=== PATIENT | female | born 1990 | race Asian ===

== ENCOUNTER 2016-12-25 13:12 | Outpatient (CLI) | payer MEDICAID ==
[~2016-12-25] VITALS: Ht 160 cm; Wt 77.0 kg
[2016-12-25 13:42] VITALS: BP 106/64
[2016-12-25 15:21] LABS: BASO % 0.3 % (0.0-1.0); EOS # 0.1 K/mm3 (0.0-0.50); EOS % 0.8 % (0.0-3.0); LARGE UNSTAINED CELL # 0.2 K/mm3 (0.0-0.4); LARGE UNSTAINED CELL % 1.9 % (0.0-4.0); LYMPH # 2.1 K/mm3 (1.5-6.5); LYMPH % 21.2 % (24.0-44.0); MEAN CORPUSCULAR HEMOGLOBIN 28.1 pg (27.0-33.0); MEAN CORPUSCULAR VOLUME 85.1 fl (80.0-96.0); MONO # 0.4 K/mm3 (0.0-0.8); MONO % 4.3 % (0.0-5.0); NEUTROPHILS # 7.1 K/mm3 (1.8-7.7); NEUTROPHILS % 71.5 % (36.0-66.0); PLATELET COUNT, AUTOMATED 222 k/mm3 (150-450); RED CELL DISTRIBUTION WIDTH 13.2 % (11.5-14.5)
[2016-12-25 15:51] LABS: CONTROL LINE INT CTR LINE PRESENT; HIV SCRN NEGATIVE (NEGATIVE); HIV SCRN1 NEGATIVE (NEGATIVE)
[2016-12-25 16:02] LABS: HBsAg Prenatal NEGATIVE (NEGATIVE)
== END 2016-12-25 16:20 | disposition home or self-care (01) ==
LOC: M LDO 13:12
PROVIDERS: ATTEND Obstetrics & Gynecology
DX: O26.892 Other specified pregnancy related conditions, second trimester (principal); R10.2 Pelvic and perineal pain; Z3A.22 22 weeks gestation of pregnancy

== ENCOUNTER → 2017-01-18 | Outpatient (CLI) | payer MEDICAID, OTHER ==
--- NOTE | 2017-01-19 04:44 | REP ---
Clinical: Anatomical evaluation. Comparison: None . Findings: Examination demonstrates a single live intrauterine in cephalic presentation. motion is identified by technologist. Placenta is noted posteriorly and grade zero without evidence for placenta previa or abruption. Amniotic fluid volume is normal. Cervix measures O 3.3 cm in length and appears closed. No evidence for nuchal cord. Gestational age by LMP 26 weeks 1 day with ARYAN 04/25/2017 . Gestational age by current measurements 25 weeks 4 days with ARYAN 04/29/2017 . FHR equals 147 beats per minute. BPD 6.4 cm 25 weeks 6 days HC 23.3 cm 25 weeks 2 days AC 21.2 cm 25 weeks 5 days FL 4.5 cm 24 weeks 6 days HL 4.4 cm 26 weeks 1 day HC/AC ratio 1.10 Estimated weight 800 grams ( 24th percentile). Anatomical assessment demonstrates normal structures including cranium, choroid plexus, cavum, cerebellum/posterior fossa, lungs, diaphragm, stomach, cord insertion/three-vessel cord, kidneys/bladder, spine, and extremities. Impression: 1. Single live intrauterine in cephalic presentation. 2. Limited evaluation of the facial features and heart/ventricular outflow tracts. 3. Remainder of the anatomical assessment is complete and normal. Signed by Zeke King MD 01/19/2017 04:36 A
== END ==
LOC: M RAD 13:33
PROVIDERS: ATTEND Advanced Practice Midwife
DX: Z34.82 Encounter for supervision of other normal pregnancy, second trimester (principal)

== ENCOUNTER → 2017-03-05 | Outpatient (CLI) | payer OTHER ==
--- NOTE | 2017-03-05 16:44 | REP ---
OB ULTRASOUND: HISTORY: growth and amniotic fluid volume calculation. COMPARISON: 01/18/2017 Multiple ultrasonographic images of the gravid uterus show a single living intrauterine gestation in the cephalic presentation. Doppler interrogation of the heart shows a heart rate of 144 beats per minute. The placenta is posterior and not low lying. The subjective amniotic fluid volume is within normal limits. The calculated amniotic fluid index is 9.3 with an expected range of 8.4 to 24.4. Doppler interrogation of the umbilical artery shows an AB ratio of 3.46, slightly elevated with the upper limits of normal being 3.15 for this age group. Once again, the facial features were seen suboptimally as was the right ventricular outflow tract. The left ventricular outflow tract was seen to be within normal limits on today's examination, previously unidentified. BPD 8.2 cm = 33 weeks 0 days HC 28.6 cm = 31 weeks 3 days AC 26.6 cm = 30 weeks 5 days FL 5.9 cm = 30 weeks 6 days The estimated weight is 1687 grams, which is at the 13th percentile for a 32 week 5 day gestational age. IMPRESSION: Single living intrauterine gestation as described above with an estimated gestational age of 31 weeks 0 days via composite criteria with an estimated date of delivery of 05/07/2017 by today's exam. No anomalies were detected, however, the anatomical screen remains incomplete as described above. Signed by Jhonny Alfred DO 03/05/2017 04:49 P
== END ==
LOC: M SMT 14:40
PROVIDERS: ATTEND Advanced Practice Midwife
DX: O26.843 Uterine size-date discrepancy, third trimester (principal); Z3A.31 31 weeks gestation of pregnancy

== ENCOUNTER → 2017-03-26 | Outpatient (REF) | payer OTHER | LOC: M LAB REF 13:13 | PROVIDERS: ATTEND Advanced Practice Midwife | DX: Z34.83 Encounter for supervision of other normal pregnancy, third trimester (principal) ==

== ENCOUNTER 2017-04-09 06:21 | Inpatient (IN) | payer OTHER ==
[~2017-04-09] VITALS: Ht 157.5 cm; Wt 86.0 kg
[2017-04-09] VITALS (18 sets, daily range): BP systolic 91–133; BP diastolic 52–83
[2017-04-09] MEDS ORDERED: PRENTAB9 PO (06:28)
[2017-04-09 08:18] LABS: MEAN CORPUSCULAR HEMOGLOBIN 28.6 pg (27.0-33.0); MEAN CORPUSCULAR HGB CONC 33.6 g/dl (32.0-36.5); RED CELL DISTRIBUTION WIDTH 15.4 % (11.5-14.5); WHITE BLOOD COUNT 13.5 K/mm3 (4.0-10.0)
[2017-04-09 08:25] LABS: ALT/SGPT 17 U/L (12-78); AST/SGOT 23 U/L (15-37); BILIRUBIN,TOTAL 0.3 MG/DL (0.2-1.0); GLOMERULAR FILTRATION RATE > 60.0 (>60); URIC ACID 6.6 MG/DL (2.6-6.0)
--- NOTE | 2017-04-09 09:26 | HPE ---
DATE OF ADMISSION: 04/09/2017 27-year-old, (G) 1, para (P) 0 female at 37 and 5/7 weeks gestation by last menstrual period (LMP) consistent with 25 week ultrasound and expected date of confinement (EDC) 04/25/2017 who presents with regular contractions every 3-4 minutes for the last several hours that increased in intensity. She denies vaginal bleeding. COURSE: The patient initiated care at 25 weeks gestation. She had early care in [place] and then moved [place] this [place]. Her course was unremarkable. MEDICAL HISTORY: None. SURGERIES: None. ALLERGIES: None. SOCIAL HISTORY: The patient is . She denies cigarettes, alcohol or drug use. FAMILY HISTORY: Noncontributory. PHYSICAL EXAMINATION: Blood pressure 124/78. Pulse 95. She appears uncomfortable. Head and Neck Exam: Normal. Lungs: Clear. Heart: Regular rate and rhythm. Abdomen: Nontender. Gravid. heart tones Category 1. Sterile Vaginal Exam: 4 cm, 100% effaced, -1 station, vertex. Extremities: Nontender. O positive. Rubella immune. RPR nonreactive. Hepatitis B and C negative. HIV negative. Diabetes screen 118. GBS negative on 03/26/2017. ASSESSMENT: 27-year-old, G1 at 37 and 5/7 weeks gestation who presents in active labor. The patient is admitted on 04/09/2017.
[2017-04-09] MEDS ORDERED: BUTORPHANOL 2 MG/ML INJ (J0595) IV ONE (15:45)
[2017-04-09] MEDS ORDERED: PROMETHAZINE INJ 25 MG/ML VIAL (J2550) IV ONE (15:45)
[2017-04-09] MEDS ORDERED: OXYTOCIN 30 UNITS IN 0.9% NaCl 500ML IV BAG (J2590) As Ordered ONE (18:51)
[2017-04-09] MEDS ORDERED: RHOGAM 300 MCG (1500 IU) INJ (J2790) IM SCH (20:00)
[2017-04-09] MEDS ORDERED: LR 1,000 ML IV SCH (20:00)
[2017-04-09] MEDS ORDERED: OXYTOCIN DRIP 30 UNITS in APPROPRIATE DILUENT 1 EA IV SCH (20:00)
[2017-04-09] MEDS ORDERED: PROMETHAZINE 25 MG TAB PO PRN (20:00)
[2017-04-09] MEDS ORDERED: IBUPROFEN 800 MG TAB PO PRN (20:00)
[2017-04-09] MEDS ORDERED: ACETAMINOPHEN 500 MG TAB PO PRN (20:00)
[2017-04-09] MEDS ORDERED: ONDANSETRON 4MG/2ML VIAL (J2405) IV PRN (20:00)
[2017-04-09] MEDS ORDERED: DOCUSATE SODIUM 100 MG CAP PO PRN (20:00)
[2017-04-09] MEDS ORDERED: DIBUCAINE 1% OINTMENT 30GM TOP PRN (20:00)
[2017-04-10 05:39] VITALS: BP 104/56
[2017-04-10] MEDS: PRENATAL VITAMIN TAB PO SCH ×2 (09:00→09:03)
[2017-04-10] MEDS ORDERED: LIDOCAINE 1% MDV INJ 50 ML VIAL SC ONE (13:00)
[2017-04-10 18:03] VITALS: BP 101/62
[2017-04-11 05:38] VITALS: BP 108/62
[2017-04-11] MEDS: PRENATAL VITAMIN TAB PO SCH (08:55)
[2017-04-11] MEDS ORDERED: IBUP-1114 PO (09:11)
[2017-04-11] MEDS ORDERED: ACET50TA PO (09:11)
== END 2017-04-11 11:45 | disposition home or self-care (01) | DRG 560 ==
LOC: M LDO 06:21 → M LDI 07:14 → M OBS 21:47
PROVIDERS: ADMIT Specialist; ATTEND Specialist
PROC: 10E0XZZ Delivery of Products of Conception, External Approach (ICD-10-PCS; principal; 2017-04-09)
PROC: 0HQ9XZZ Repair Perineum Skin, External Approach (ICD-10-PCS; 2017-04-09)
DX: O70.0 First degree perineal laceration during delivery (principal); Z37.0 Single live birth; Z3A.37 37 weeks gestation of pregnancy